=== PATIENT | male | born 1960 | race Native Hawaiian/Other Pacific Islander ===

== ENCOUNTER 2016-06-20 06:51 | Emergency (ER) | payer OTHER ==
[~2016-06-20] VITALS: Ht 185.4 cm; Wt 75.8 kg
[~2016-06-20 06:51] MED LIST: ALAVERT10 M2 PO; AMBIEN5 MG PO; CLON0.5T36 PO; DIVA500T2 PO; DIVALPROEX500 MG PO; DOCU100C10 PO; FLUTICASON50 MCG/ACT; FOLI1TAB26 PO; HALO5INJ3 INJ; LEXAPRO10 MG OR; LEXAPRO10 MG PO; OMEPRAZOLE20 M2 PO; OXYC5TAB53 PO; PHEN50CH2 PO; POTASSIUM CHLO20 ME1 PO; REMERON SOLTAB15 MG PO; RISP1TAB PO; [UNRECOGNIZED DRUG - CODE] PO
== END 2016-06-20 08:10 | disposition other institution (70) ==
LOC: ED 06:51
PROC: 0HQ0XZZ Repair Scalp Skin, External Approach (ICD-10-PCS; principal; 2016-06-20)
DX: S01.01XA Laceration without foreign body of scalp, initial encounter (principal); S00.83XA Contusion of other part of head, initial encounter; W18.2XXA Fall in (into) shower or empty bathtub, initial encounter; Y92.231 Patient bathroom in hospital as the place of occurrence of the external cause
CPT/HCPCS: 99283